=== PATIENT | female | born 1980 | race Caucasian/White ===

== ENCOUNTER 2020-04-15 10:23 | Emergency (ER) | payer MEDICARE, OTHER ==
[~2020-04-15] VITALS: Ht 167.6 cm; Wt 73.9 kg
[2020-04-15 11:32] LABS: HEMOGLOBIN 14.5 gm/dl (12.3-15.3); RED BLOOD COUNT 5.04 M/UL (4.00-5.10)
[2020-04-15 11:55] LABS: BUN/CREATININE RATIO 14 (0-10)
[2020-04-15] MEDS ORDERED: AUGMENTIN 875-1 EACH PO (15:23)
== END 2020-04-15 16:05 | disposition home or self-care (01) ==
LOC: ER1 10:23
PROVIDERS: Emergency Medicine
DX: K57.32 Diverticulitis of large intestine without perforation or abscess without bleeding (principal)
CPT/HCPCS: 80053; 81001; 83690; 84703; 85025; 96374; 96375; 96376; 99284; J2270; J2405; J2550; Q9967

== ENCOUNTER 2020-09-23 13:06 | Emergency (ER) | payer MEDICARE, OTHER ==
[~2020-09-23 13:06] MED LIST: AUGMENTIN 875-1 EACH PO
[2020-09-23 14:04] LABS: HEMOGLOBIN 14.4 gm/dl (12.3-15.3); RED BLOOD COUNT 4.8 M/UL (4.00-5.10); WHITE BLOOD COUNT 9.3 K/UL (4.5-11.0)
[2020-09-23] MEDS ORDERED: LODINE CAP 300300 MG PO (18:53)
[2020-09-23] MEDS ORDERED: ZOFRAN ODT 4 MG4 MG PO (18:53)
[2020-09-23] MEDS ORDERED: BENTYL 20MG TAB20 MG PO (18:53)
== END 2020-09-23 19:35 | disposition home or self-care (01) ==
LOC: ER1 13:06
PROVIDERS: Physician Assistant
DX: N83.202 Unspecified ovarian cyst, left side (principal); Z90.49 Acquired absence of other specified parts of digestive tract; Z88.8 Allergy status to other drugs, medicaments and biological substances; Z79.899 Other long term (current) drug therapy; F17.210 Nicotine dependence, cigarettes, uncomplicated
CPT/HCPCS: 76830; 80053; 81001; 82150; 83690; 84703; 85025; 96374; 96375; 96376; 99284; J2270; J2405; Q9967

== ENCOUNTER → 2021-01-10 | Outpatient (CLI) | payer MEDICARE, OTHER ==
[~2021-01-10] MED LIST changes: +BENTYL 20MG TAB20 MG PO; +LODINE CAP 300300 MG PO; +ZOFRAN ODT 4 MG4 MG PO
== END ==
LOC: LAB 16:03
DX: R19.7 Diarrhea, unspecified (principal)
CPT/HCPCS: 36415; 84443

== ENCOUNTER → 2021-01-29 | Outpatient (CLI) | payer OTHER ==
[2021-01-29 16:34] LABS: BUN/CREATININE RATIO 13 (0-10)
== END ==
LOC: LAB 14:33
PROVIDERS: Nurse Practitioner Family
DX: R19.7 Diarrhea, unspecified (principal)
CPT/HCPCS: 36415; 80053

== ENCOUNTER 2021-10-14 18:10 | Emergency (ER) | payer OTHER, MEDICAID ==
[2021-10-14 20:38] LABS: HEMOGLOBIN 13.9 gm/dl (12.3-15.3); RED BLOOD COUNT 4.72 M/UL (4.00-5.10); WHITE BLOOD COUNT 12.2 K/UL (4.5-11.0)
[2021-10-14 21:02] LABS: BUN/CREATININE RATIO 15 (0-10)
[2021-10-14] MEDS ORDERED: OMNICEF 300 MG300 MG PO (23:23)
== END 2021-10-14 23:38 | disposition home or self-care (01) ==
LOC: ER1 18:10
PROVIDERS: Physician Assistant
DX: N12 Tubulo-interstitial nephritis, not specified as acute or chronic (principal); F17.200 Nicotine dependence, unspecified, uncomplicated; Z88.8 Allergy status to other drugs, medicaments and biological substances; Z90.49 Acquired absence of other specified parts of digestive tract
CPT/HCPCS: 80053; 81001; 83690; 84703; 85025; 87077; 87086; 87186; 99284; J2405

== ENCOUNTER 2021-11-25 08:45 | Emergency (ER) | payer OTHER ==
[~2021-11-25 08:45] MED LIST changes: +OMNICEF 300 MG300 MG PO
[2021-11-25 11:43] LABS: HEMOGLOBIN 14.3 gm/dl (12.3-15.3); RED BLOOD COUNT 4.93 M/UL (4.00-5.10); WHITE BLOOD COUNT 5.6 K/UL (4.5-11.0)
[2021-11-25 12:05] LABS: BUN/CREATININE RATIO 15 (0-10)
== END 2021-11-25 15:24 | disposition home or self-care (01) ==
LOC: ER1 08:45
PROVIDERS: Emergency Medicine
DX: R10.9 Unspecified abdominal pain (principal); F17.200 Nicotine dependence, unspecified, uncomplicated; Z90.49 Acquired absence of other specified parts of digestive tract; Z79.899 Other long term (current) drug therapy; Z88.8 Allergy status to other drugs, medicaments and biological substances
CPT/HCPCS: 80053; 81001; 83690; 84703; 85025; 99284; Q9967